=== PATIENT | male | born 1960 | race Caucasian/White ===

== ENCOUNTER → 2018-04-29 | Day surgery (SDC) | payer BC ==
[~2018-04-29] MED LIST: Lactated Ringers 1,000 ML IV SCH; Meperidine PF 50 MG/ML Syringe IV ONE; Meperidine PF 50 MG/ML Syringe ONE; Midazolam 1 MG/ML 2 ML SDV IV ONE; Midazolam 1 MG/ML 2 ML SDV ONE
--- NOTE | 2018-04-29 11:21 | OR ---
DATE OF OPERATION: 04/29/2018 PREOPERATIVE DIAGNOSIS: FAMILY HISTORY OF COLON CANCER. POSTOPERATIVE DIAGNOSIS: FAMILY HISTORY OF COLON CANCER. SURGEON: Fernando Colbert MD PROCEDURE PERFORMED: Full-length colonoscopy with polyp removal x1. ANESTHESIA: Conscious sedation. COMPLICATIONS: None. SPECIMEN: Small hyperplastic polyp, rectosigmoid junction. FINDINGS: 1. Full-length colonoscopy. 2. Marginal prep right colon. 3. Hyperplastic polyp, rectosigmoid junction. RECOMMENDATIONS: Follow up colonoscopy every 5 years. INDICATIONS: The patient is a father with a history of colon cancer. He had colonoscopy 3 years ago, had polyps in the past. Dr. Seo sent him for a routine surveillance scope. DESCRIPTION OF PROCEDURE: The patient was prepped and draped, placed in the left lateral decubitus position. A lubricated Olympus colonoscope was inserted and easily advanced to the cecum and under directly visualize the large ileocecal valve. He had a lot of stool in the right colon and it most notably the cecum it was very difficult to irrigate that out and actually see the appendiceal orifice. Upon withdrawal the scope, the right colon was difficult to visualize until its most distal portion on the hepatic flexure. Thicker adherent stool here, but no gross abnormalities seen. The transverse descending colon were benign. Throughout the sigmoid colon, I could find no sign of any polyps, mass, ulceration, bleeding sites, no vascular abnormalities or signs of colitis. There were no significant diverticula. Rectosigmoid junction, there was one small hyperplastic polyp, removed it in its entirety with 2 cold forceps biopsies. The rectal vault was unremarkable. Retroflexion of the scope in the rectum showed no anal lesions. Air was suctioned. Scope was removed without complication. BENJAMÍN/RENAY /[id number]
== END ==
LOC: CC.SDS 07:52
PROVIDERS: ATTEND Family Medicine
DX: Z12.11 Encounter for screening for malignant neoplasm of colon (principal); K62.1 Rectal polyp; N40.1 Benign prostatic hyperplasia with lower urinary tract symptoms; R35.1 Nocturia; E78.5 Hyperlipidemia, unspecified; E55.9 Vitamin D deficiency, unspecified; M19.90 Unspecified osteoarthritis, unspecified site; Z79.899 Other long term (current) drug therapy; Z80.0 Family history of malignant neoplasm of digestive organs
CPT/HCPCS: 45380; J2175; J2250; J7120

== ENCOUNTER → 2023-09-03 | Day surgery (SDC) | payer BC ==
[~2023-09-03] MED LIST changes: +Ketamine 200 MG/20 ML MDV ONE; -Meperidine PF 50 MG/ML Syringe IV ONE; -Meperidine PF 50 MG/ML Syringe ONE; -Midazolam 1 MG/ML 2 ML SDV IV ONE; -Midazolam 1 MG/ML 2 ML SDV ONE; +Phenylephrine 1% 10 MG/ML SDV ONE; +Propofol 200 MG/20 ML SDV ONE; +fentaNYL 50 MCG/ML SDV ONE
== END ==
LOC: CC.SDS 07:57
PROVIDERS: ATTEND Family Medicine
DX: Z12.11 Encounter for screening for malignant neoplasm of colon (principal); E78.5 Hyperlipidemia, unspecified; B37.2 Candidiasis of skin and nail; L25.9 Unspecified contact dermatitis, unspecified cause; E55.9 Vitamin D deficiency, unspecified; Z79.899 Other long term (current) drug therapy; Z80.0 Family history of malignant neoplasm of digestive organs
CPT/HCPCS: J2371; J2704; J3010; J3490; J7120